=== PATIENT | female | born 1955 | race Caucasian/White ===

== ENCOUNTER 2017-03-14 07:54 | Emergency (ER) | payer BC ==
--- NOTE | 2017-03-14 08:00 | UC ---
Respiratory Complaint HPI - HPI Summary HPI Summary: 62 year old female presents with sinus congestion and cough x 1 week. - History of Current Complaint Chief Complaint: UCRespiratory Stated Complaint: COUGH FEVER CONGESTION Time Seen by Provider: 03/14/17 07:59 Hx Obtained From: Patient Onset/Duration: Sudden Onset Severity Initially: Moderate Severity Currently: Moderate - Allergies/Home Medications Allergies/Adverse Reactions: Allergies Allergy/AdvReac Type Severity Reaction Status Date / Time Sulfa Antibiotics Allergy Severe Rash Verified 03/14/17 08:02 Penicillins Allergy Mild Rash Verified 03/14/17 08:02 Home Medications: Home Medications Insulin Infusion Pump [Accu-Chek Combo] 1 unit SEE INSTRUCTIONS 03/14/17 [ History Confirmed 03/14/17] Lisinopril TAB* [Prinivil TAB*] 10 mg PO BEDTIME 03/14/17 [History Confirmed ] Simvastatin [Flolipid] 20 mg BEDTIME 03/14/17 [History Confirmed 03/14/17] PMH/Surg Hx/FS Hx/Imm Hx Previously Healthy: Yes Review of Systems Constitutional: Negative Skin: Negative Eyes: Negative ENT: Nasal Discharge, Sinus Congestion, Sinus Pain/Tenderness Respiratory: Cough Cardiovascular: Negative Gastrointestinal: Negative Genitourinary: Negative Motor: Negative Neurovascular: Negative Musculoskeletal: Negative Neurological: Negative Psychological: Negative All Other Systems Reviewed And Are Negative: Yes Physical Exam Triage Information Reviewed: Yes Vital Signs Reviewed: Yes Eye Exam: Normal ENT Exam: Normal Dental Exam: Normal Neck exam: Normal Neck: Positive: 1 Respiratory Exam: Normal Cardiovascular Exam: Normal Abdominal Exam: Normal Musculoskeletal Exam: Normal Neurological Exam: Normal Psychological Exam: Normal Skin Exam: Normal Respiratory Course/Dx - Differential Dx/Diagnosis Provider Diagnoses: sinusitis. allergic rhinitis Discharge - Discharge Plan Condition: Stable Disposition: HOME Prescriptions: Azithromyxin LUKE (NF) [Z-Luke (Zithromax) 250 mg tabs #6] 2 tab PO .TODAY, THEN 1 DAILY #6 tab Guaifenesin-Codeine [Cheratussin AC] 1 teasp PO Q8H PRN #120 ml MDD 15 ml PRN Reason: Cough LoraTADine TAB(NF) [Claritin 10 MG TAB(NF)] 10 mg PO DAILY #30 tab Patient Education Materials: Sinusitis (ED), Acute Cough (ED)
[2017-03-14 08:07] VITALS: BP 111/49
== END 2017-03-14 08:24 | disposition home or self-care (01) ==
LOC: UCCORT 07:54
DX: J32.9 Chronic sinusitis, unspecified (principal); J30.9 Allergic rhinitis, unspecified
CPT/HCPCS: 99202; G0463

== ENCOUNTER → 2017-05-29 08:39 | Emergency (ER) | payer BC ==
[2017-05-29 09:55] VITALS: BP 135/74
--- NOTE | 2017-05-29 10:29 | ED ---
Throat Pain/Nasal Congestion - HPI Summary HPI Summary: 62 yr old female with left facial swelling, and dental pain over the weekend. She has decayed upper left molars that had been aching for a few days and now work up this morning with some swelling to the left side of the face. No fever or chills. No trouble swallowing. No eye pain - History of Current Complaint Chief Complaint: UCDentalProblem Time Seen by Provider: 05/29/17 10:04 - Allergies/Home Medications Allergies/Adverse Reactions: Allergies Allergy/AdvReac Type Severity Reaction Status Date / Time Penicillins Allergy Rash Verified 05/29/17 09:49 Sulfa (Sulfonamide Allergy Rash Verified 05/29/17 09:49 Antibiotics) PMH/Surg Hx/FS Hx/Imm Hx Endocrine/Hematology History: Reports: Hx Diabetes - type 1 Infectious Disease History: No Infectious Disease History: Denies: Traveled Outside the [place] in Last 30 Days - Social History Alcohol Use: None Substance Use Type: Reports: None Smoking Status (MU): Never Smoked Tobacco Review of Systems Constitutional: Negative Positive: Other - dental pain, facial swelling. All Other Systems Reviewed And Are Negative: Yes Physical Exam Triage Information Reviewed: Yes Vital Signs On Initial Exam: Initial Vitals Temp Pulse Resp BP Pulse Ox 97.9 F 94 16 135/74 98 05/29/17 09:49 05/29/17 09:49 05/29/17 09:49 05/29/17 09:49 05/29/17 09:49 Vital Signs Reviewed: Yes Appearance: Positive: Well-Appearing, No Pain Distress Skin: Positive: Warm Eyes: Positive: EOMI ENT: Positive: Normal ENT inspection Dental: Positive: Gross Decay/Caries @ - upper left posterior molars Neck: Positive: Supple, Nontender Respiratory/Lung Sounds: Positive: Clear to Auscultation, Breath Sounds Present Cardiovascular: Positive: RRR. Negative: Murmur Abdomen Description: Positive: Nontender Musculoskeletal: Positive: Strength/ROM Intact Neurological: Positive: Sensory/Motor Intact, Alert, Oriented to Person Place, Time, CN Intact II-III Psychiatric: Positive: Normal - Radha Coma Scale Best Eye Response: 4 - Spontaneous Best Motor Response: 6 - Obeys Commands Best Verbal Response: 5 - Oriented Coma Scale Total: 15 Diagnostics - Vital Signs Vital Signs Temp Pulse Resp BP Pulse Ox 05/29/17 09:49 97.9 F 94 16 135/74 98 - Laboratory Lab Statement: Any lab studies that have been ordered have been reviewed, and results considered in the medical decision making process. EENT Course/Dx - Course Course Of Treatment: 62 yr old female with left facial swelling and pain. dental caries. She is a type one diabetic. Rx with clinadmycin. FU with dental. If her BS get high or symptoms worsen or if she developes left eye pain she should go to the ER and this was communicated toher. - Diagnoses Provider Diagnoses: Dental cavities, Left facial swelling Discharge - Discharge Plan Condition: Good Disposition: HOME Prescriptions: Clindamycin Cap(NF) [Clindamycin Cap 300 mg Cap(NF)] 300 mg PO Q6H #40 cap Patient Education Materials: Toothache (ED) Referrals: Elsie Paul MD [Primary Care Provider] - 2 Days
== END | disposition home or self-care (01) ==
LOC: UCCORT 08:39
DX: K02.9 Dental caries, unspecified (principal); R22.0 Localized swelling, mass and lump, head; E10.9 Type 1 diabetes mellitus without complications
CPT/HCPCS: 99212; G0463